=== PATIENT | female | born 1985 | race Caucasian/White ===

== ENCOUNTER 2017-05-25 09:31 | Emergency (ER) | payer MEDICAID ==
--- NOTE | 2017-05-25 09:49 | ERNOTE ---
Chest Pain/Cardiac HPI Chief Complaint: Palpitations Time Seen by Provider: 05/25/17 09:39 Source: patient Exam Limitations: no limitations Allergies/Adverse Reactions: Allergies amoxicillin Allergy (Intermediate, Verified 05/25/17 09:43) Nausea Rash Home Medications: HOME MEDICATIONS Hydroxyzine Pamoate 50 mg PO TID PRN #30 capsule 05/25/17 [Last Taken Unknown] Narrative: Patient has been noticing that she is having heart palpitations over the past week or so. She stated last night they got somewhat worse and she got concerned and decided to come in and make sure nothing else going on. At the moment she is not having any palpitations and feels back to her baseline. Timing: intermittent Severity/Quality: moderate Location: substernal Chest Pain Radiation: no radiation Activities at Onset: emotional stress Modifying Factors - Improves: Present: nothing Modifying Factors - Worsens: Present: nothing Nitro Today/Relief: no nitro taken today Aspirin Treatment Today: no aspirin today Associated Symptoms: Present: denies symptoms Prior Chest Pain/Cardiac Workup: Reports: no prior cardiac workup Review of Systems - Review of Systems Constitutional: Present: See HPI EYE: Present: no symptoms reported ENT: Present: no symptoms reported Respiratory: Present: no symptoms reported Cardiology: Present: palpitations Gastrointestinal/Abdominal: Present: no symptoms reported Genitourinary: Present: no symptoms reported Musculoskeletal: Present: no symptoms reported Skin: Present: no symptoms reported Neurological: Present: no symptoms reported Endocrine: Present: no symptoms reported Hematologic/Lymphatic: Present: no symptoms reported Psych: Present: no symptoms reported - Patient's Past Medical History Patient History - Medical: No pertinent hx Patient History - Cardiac/Respiratory: No pertinent hx Patient History - Cancer: No Hx of Cancer Patient History - Surgical Procedures: - Family History Mother Family History - Medical: Anemia, Seizures - Social History Living Situations: home Smoking Status: Current every day smoker Have you smoked in the past 12 months: Yes Do you dip or chew tobacco: No Alcohol Use: occasionally Drug Use: none Physical Exam - Physical Exam General Appearance: Present: wd/wn, alert, no apparent distress Eye Exam: Normal inspection: bilateral, PERRL: bilateral Ears, Nose, Throat: Present: normal ENT inspection, H, normal pharynx Neck: Present: normal inspection, nontender Respiratory: Present: no respiratory distress, normal breath sounds, no accessory muscle use, chest nontender, lungs clear Cardiovascular/Chest: Present: regular rate, rhythm, no murmur, normal peripheral pulses Gastrointestinal/Abdominal: Present: normal bowel sounds, nontender, nondistended, soft, no organomegaly Rectal Exam: Present: deferred Back Exam: Present: normal inspection, normal range of motion Extremity Exam: Present: normal inspection, non-tender, no edema, normal range of motion Neurological Exam: Present: alert, oriented, normal mood/affect Skin Exam: Present: normal color, warm/dry Lymphatic Exam: Present: no adenopathy ED Progress - Results and Orders Patient's Lab Results:: I have reviewed the patient's lab results. - Vital Signs Patient's Vital Signs:: I have reviewed the patient's vital signs. Vital Signs: Vital Signs 05/25/17 05/25/17 09:37 09:43 Temperature 36.5 C Pulse Rate 82 86 Respiratory 16 Rate Blood Pressure 135/95 O2 Sat by Pulse 99 Oximetry - EKG EKG: NSR - X-Ray X-Ray #1 X-Ray: chest Interpretation: Reviewed by me - Progress/Reassessment Chief Complaint: Palpitations Plan - Plan Plan: I had a nice discussion with the patient regarding the various chemicals in tobacco as being part of the problem for palpitations as well as an acute stress reaction. She states she is going to try to get off of smoking in the very immediate future and we will try giving her some hydroxyzine to assist in her stress response as well. Departure - Departure Clinical Impression: Heart palpitations, Stress reaction Disposition: Home self-care Condition: Good Instructions: Palpitations, [id number] Referrals: Heather Quinones MD [Primary Care Provider] - Prescriptions: Hydroxyzine Pamoate 50 mg PO TID PRN #30 capsule PRN Reason: Anxiety
[2017-05-25 10:02] LABS: Hematocrit 40.7 % (37.0-47.0); Hemoglobin 13.7 gm/dL (12.5-16.0); Mean Cell Volume 91.9 fl (78-100); Mean Corpuscular Hemoglobin 30.9 pg (27-31); Mean Corpuscular Hgb Conc 33.7 g/dl (32-36); Mean Platelet Volume 11.1 fl (6.0-9.5); Neutrophil # 4.7 K/mm3 (1.3-6.0); Neutrophil % 60.5 % (42-75.0); Platelet Count 231 K/mm3 (150-450); Red Blood Count 4.43 M/mm3 (4.2-5.4); Red Cell Distribution Width 12.9 % (11.5-14.0); White Blood Count 7.8 K/mm3 (4.0-10.5)
[2017-05-25 10:20] LABS: BUN/Creatinine Ratio 8.4 (9.0-21.6); Blood Urea Nitrogen 7 mg/dL (3-23); Carbon Dioxide 24.3 mmol/L (24-32.6); Chloride 104 mmol/L (97-106); Glucose * 76 mg/dL (70-110); Potassium 3.7 mmol/L (3.4-4.6); Sodium 141 mmol/L (132-142)
[2017-05-25 10:21] LABS: ALT 19 U/L (19-67); AST 13 U/L (0-48); Alkaline Phosphatase * 55 U/L (50-170); Anion Gap 16.4 mmol/L (6.8-13.8); Bilirubin, Total 0.5 mg/dL (0.0-1.1); Ca. Corrected For Albumin 8.9 mg/dL (8.4-10.2); Calcium * 9.2 mg/dL (7.9-10.9); Magnesium 2.2 mg/dL (1.2-2.8); Total Protein 7.5 gm/dL (6.2-8.2); Troponin I Less than 0.017 ng/ml (0.00-0.10)
[2017-05-25 11:26] VITALS: BP 128/95
== END 2017-05-25 11:00 | disposition home or self-care (01) ==
LOC: ER 09:31
DX: R00.2 Palpitations (principal); F43.0 Acute stress reaction; F17.200 Nicotine dependence, unspecified, uncomplicated

== ENCOUNTER 2017-09-29 11:27 | Day surgery (SDC) | payer BC, MEDICAID ==
[~2017-09-29 11:27] MED LIST: RINGER'S SOLUTION,LACTATED 1,000 ML IV PRN
[2017-09-29 11:55] LABS: Hematocrit 41.2 % (37.0-47.0); Hemoglobin 13.9 gm/dL (12.5-16.0); Mean Cell Volume 94.5 fl (78-100); Mean Corpuscular Hemoglobin 31.9 pg (27-31); Mean Corpuscular Hgb Conc 33.7 g/dl (32-36); Neutrophil # 3.6 K/mm3 (1.3-6.0); Neutrophil % 54.9 % (42-75.0); Platelet Count 243 K/mm3 (150-450); Red Blood Count 4.36 M/mm3 (4.2-5.4); Red Cell Distribution Width 12.5 % (11.5-14.0); White Blood Count 6.6 K/mm3 (4.0-10.5)
[2017-09-29 12:14] LABS: Albumin * 4.1 gm/dl (3.4-5.0); Anion Gap 9.9 mmol/L (6.8-13.8); BUN/Creatinine Ratio 9.3 (9.0-21.6); Bilirubin, Total 0.6 mg/dL (0.0-1.1); Ca. Corrected For Albumin 8.8 mg/dL (8.4-10.2); Calcium * 9.2 mg/dL (7.9-10.9); Carbon Dioxide 28.1 mmol/L (24-32.6); Total Protein 7.3 gm/dL (6.2-8.2)
[2017-09-29] MEDS ORDERED: RINGER'S SOLUTION,LACTATED 800 ML IV ONE (13:00)
[2017-09-29] MEDS ORDERED: LIDOCAINE HCL/EPINEPHRINE 30 ML VIAL IJ ONE ×2 (13:20)
[2017-09-29] MEDS ORDERED: POTASSIUM IODIDE PO ONE (13:43)
[2017-09-29] MEDS ORDERED: IODINE PO ONE (13:43)
[2017-09-29] MEDS ORDERED: RINGER'S SOLUTION,LACTATED 1,000 ML IV ONE (13:52)
[2017-09-29] MEDS ORDERED: FERRIC SUBSULFATE 8 ML VIAL TP ONE (13:56)
[2017-09-29] MEDS ORDERED: RINGER'S SOLUTION,LACTATED 1,000 ML IV PRN (14:15)
--- NOTE | 2017-09-29 14:15 | OR ---
Operative Report - Dictated Report Narrative: Date of Procedure: 09/29/2017 PROCEDURE: 1. Loop electrical excision procedure (LEEP) of the cervix 2. Removal of Mirena IUD ANESTHESIA: General with IV sedation PREOPERATIVE DIAGNOSIS: 1. ELSIE 2 at 12 o'clock cervix 2. ELSIE 1 in endocervical curettage 3. LGSIL Pap smear 4. Positive high risk HPV 5. Lost string of Mirena IUD POSTOPERATIVE DIAGNOSIS: 1. ELSIE 2 at 12 o'clock cervix 2. ELSIE 1 in endocervical curettage 3. LGSIL Pap smear 4. Positive high risk HPV 5. Lost string of Mirena IUD SURGEON: Adan Jimenez MD SERVICES COORDINATOR: Tyrel FINDINGS: Uterus: somewhat retroverted, normal size. Cervix: no gross lesions, non-staining area highlighted by Lugol solution was limited to cervical os. Mirena IUD string was not visible outside the cervix, but was inside the cervical canal. SPECIMEN: 1. Cervical cone with suture at 12 o'clock 2. Post cone ECC 3. Mirena IUD discarded DRAINS: None. URINE OUTPUT: not measured BLOOD LOSS: < 5 mL. INTRAOPARATIVE IV FLUIDS: 900 ml. COMPLICATIONS: None. DETAILS OF PROCEDURE: The patient consented prior to the procedure and was taken to the operating room. She was placed on the operating table in a supine position. SCDs were placed on her lower extremities. General anesthesia was induced and was successful. The patient was then repositioned in the dorsal lithotomy position. Exam under anesthesia noted a mildly retroverted uterus with no adnexal mass. She was prepped with betadine and draped in the usual sterile fashion. A time out procedure was performed to confirm the correct patient for the correct procedure. A bivalve speculum was placed into the vagina. The cervix was visualized. Vagina was prepped with betadine one more time. A stay suture of 0 Vicryl was placed at the lateral edge of the cervix at 3 and 9 o'clock position. These served to ligate the cervical branch of the uterine artery to help decrease the bleeding and also to provide traction for the procedure. At this point, the bivalve speculum was changed to an insulated speculum with an insulated side wall retractor. The cervix was then stained with Lugol solution. Small non-staining area was noted near the cervical os. There was no gross lesion. The cervix was infiltrated with 1% lidocaine with epinephrine at 12 o'clock, 3 o'clock, 6 o'clock, and 9 o'clock position. A total of 13 mL of lidocaine with epinephrine was used. An electrical loop set at 60 for cut was used to make a cervical cone biopsy. The specimen was removed in one piece as labelled above. A post cone ECC was performed. The cervical crater was cauterized with a Bovie ball tip set at 40 for coag. Hemostasis was assured. The cervix cone crater was further covered with Monsel solution. The area was completely hemostatic. The stay suture at 3 o'clock and 9 o'clock was cut. The speculum was removed. The patient tolerated the procedure well. All counts were correct. The patient was awakened from anesthesia and taken to the recovery room in stable condition. Adan Jimenez MD
[2017-09-29 15:29] VITALS: BP 117/72
[2017-09-29] MEDS ORDERED: IBUPROFEN 800 MG TABLET PO ONE (15:30)
[2017-09-29] MEDS ORDERED: oxyCODONE HCL/ACETAMINOPHEN 1 TAB TABLET PO ONE (15:30)
== END 2017-09-29 11:28 | disposition home or self-care (01) ==
LOC: AMB 11:27
PROVIDERS: ATTEND Obstetrics & Gynecology
PROC: 0UBC7ZX Excision of Cervix, Via Natural or Artificial Opening, Diagnostic (ICD-10-PCS; principal; 2017-09-29)
PROC: 0UPD7HZ Removal of Contraceptive Device from Uterus and Cervix, Via Natural or Artificial Opening (ICD-10-PCS; 2017-09-29)
DX: N87.1 Moderate cervical dysplasia (principal); R87.810 Cervical high risk human papillomavirus (HPV) DNA test positive; T83.32XA Displacement of intrauterine contraceptive device, initial encounter; F17.210 Nicotine dependence, cigarettes, uncomplicated; Z68.30 Body mass index [BMI] 30.0-30.9, adult